=== PATIENT | male | born 1965 | race Two or more races ===

== ENCOUNTER 2019-11-16 08:01 | Emergency (ER) | payer MEDICAID ==
[~2019-11-16] VITALS: Ht 172.7 cm; Wt 75.0 kg
[2019-11-16] MEDS ORDERED: ACETAMINOPHEN 325MG TABLET PO NR (09:23)
[2019-11-16 09:29] LABS: BASOPHILS % 0.4 % (0.0-2.0); EOSINOPHILS % 3.1 % (0.0-5.0); HEMATOCRIT. 44.9 % (42.0-52.0); LYMPHOCYTES % 28.6 % (20.0-50.0); MEAN CORPUSCULAR HEMOGLOBIN 30.6 pg (28.0-32.0); MEAN CORPUSCULAR VOLUME 91.4 fL (80.0-94.0); MEAN PLATELET VOLUME 9.7 fl (7.4-10.4); MONOCYTES % 6.9 % (2.0-8.0); PLATELET 249 x1000/uL (130-400); RED BLOOD CELL COUNT 4.91 mill/uL (4.7-6.1); RED CELL DISTRIBUTION WIDTH 13.4 % (11.6-14.6)
[2019-11-16 09:30] LABS: CHLORIDE 104 mEq/L (98-107)
[2019-11-16] MEDS ORDERED: LEVETIRACETAM 1000MG/100ML 100 ML IV ONE (09:30)
[2019-11-16] MEDS ORDERED: LORAZEPAM 2MG/ML CPJ IV ONE (09:30)
[2019-11-16 09:34] LABS: ETHANOL BLOOD < 10 mg/dL
[2019-11-16 10:12] LABS: CLARITY URINE CLEAR (CLEAR); COLOR URINE YELLOW (YELLOW); KETONES URINE NEGATIVE (NEGATIVE); LEUKOCYTE ESTERASE URINE NEGATIVE (NEGATIVE); NITRITE URINE NEGATIVE (NEGATIVE); OCCULT BLOOD URINE 2+ (NEGATIVE); PROTEIN URINE 1+ (NEGATIVE); SPECIFIC GRAVITY URINE 1.012 (1.005-1.030); UROBILINOGEN URINE 0.2 E.U./dL (0.2-1.0)
[2019-11-16 10:28] LABS: *AMPHETAMINES SCREEN URINE NEGATIVE (NEGATIVE); *COCAINE SCREEN URINE NEGATIVE (NEGATIVE); CANNABINOID URINE SCREEN NEGATIVE (NEGATIVE); METHADONE URINE SCREEN NEGATIVE (NEGATIVE); OPIATES URINE SCREEN NEGATIVE (NEGATIVE); PHENCYCLIDINE URINE SCREEN NEGATIVE (NEGATIVE)
[2019-11-16 10:29] LABS: *BARBITURATES SCREEN URINE NEGATIVE (NEGATIVE); *BENZODIAZEPINES SCREEN URINE NEGATIVE (NEGATIVE)
[2019-11-16 11:37] VITALS: BP 143/98
== END 2019-11-16 11:41 | disposition home or self-care (01) ==
LOC: ER 08:01
DX: G40.409 Other generalized epilepsy and epileptic syndromes, not intractable, without status epilepticus (principal); R51 Headache; I10 Essential (primary) hypertension
CPT/HCPCS: 36415; 80053; 80305; 80320; 81003; 82542; 82962; 85025; 96365; 96366; 96375; 99284; J1953; J2060; G0480